=== PATIENT | female | born 1960 | race Caucasian/White ===

== ENCOUNTER → 2018-12-14 | Outpatient (CLI) | payer BC, OTHER | LOC: ULTRA 10:35 | DX: K80.20 Calculus of gallbladder without cholecystitis without obstruction (principal) ==

== ENCOUNTER → 2019-01-25 | Outpatient (CLI) | payer BC, OTHER | LOC: NUC 08:49 | DX: K80.20 Calculus of gallbladder without cholecystitis without obstruction (principal); R10.13 Epigastric pain ==

== ENCOUNTER → 2019-01-26 | Outpatient (CLI) | payer BC, OTHER | LOC: RAD 08:24 | DX: K44.9 Diaphragmatic hernia without obstruction or gangrene (principal); K21.9 Gastro-esophageal reflux disease without esophagitis; K80.20 Calculus of gallbladder without cholecystitis without obstruction ==